=== PATIENT | female | born 1975 | race American Indian/Alaskan Native ===

== ENCOUNTER 2017-11-03 13:33 | Day surgery (SDC) | payer MEDICAID ==
[2017-11-03] MEDS ORDERED: NACL 0.9% 1000 ML 1,000 ML IV SCH (14:00)
--- NOTE | 2017-11-03 16:39 | Anesthesia Day of Surgery ---
Anesthesia Day of Surgery - Day of Surgery Patient Examined: Yes Patient H&P Reviewed: Yes Patient is NPO: Yes
--- NOTE | 2017-11-03 16:39 | Anesthesia Consultation ---
Anesthesia Consult and Med Hx Date of service: 11/03/17 - Airway Anesthetic Teeth Evaluation: Good ROM Head & Neck: Adequate Mental/Hyoid Distance: Adequate Mallampati Class: Class I Intubation Access Assessment: Probably Good - Pulmonary Exam CTA: Yes - Cardiac Exam Cardiac Exam: RRR - Pre-Operative Health Status ASA Pre-Surgery Classification: ASA2 Proposed Anesthetic Plan: General - Pulmonary Hx Smoking: Yes - Cardiovascular System Hx Hypertension: Yes
[2017-11-03] MEDS ORDERED: DIPRIVAN 10 MG/ML IV ONE ×2 (16:43)
--- NOTE | 2017-11-03 17:13 | Operative Report ---
Operative Report Operative Report: Date of procedure: 11/03/2017 Procedure: Colonoscopy. Attending physician: Virgilio Regan MD Business Services Sales Representative: Virgilio Regan MD Indication: Patient is a 42-year-old female who presents for colonoscopy to evaluate abdominal pain and constipation. A colonoscopy serves to evaluate patient so that treatment may be directed based on the findings. Consent: Informed consent was obtained after advising the patient and family regarding nature of this procedure, its indications, potential benefits as well as possible complications including but not limited to bleeding perforation and adverse reaction to medication, infection as well as other cardiopulmonary complications. An informed written and verbal consent was then obtained after due opportunity was provided for questions and answers. Monitoring: Patient was monitored continuously with pulse oximetry and electrocardiographic recordings as well as blood pressure recordings. Vital signs remained stable throughout this procedure with no untoward events. Preoperative assessment: Patient was assessed immediately prior to this procedure for capacity to tolerate monitored anesthesia care and moderate sedation as well as general anesthesia. Patient's ASA classification is 2, Mallampati class is 2, Hyomental distance is 3. Instrument: Scannxn video colonoscope Medications: Propofol given intravenously in divided doses. For details please refer to anesthesia records. Description of procedure: Patient was placed in the left lateral decubitus position after achieving sedation, a digital rectal examination was performed following which the colonoscope was introduced into the anal verge and advanced to the cecum which was identified by the ileocecal valve, the appendiceal orifice, as well as by the cecal strap and direct transillumination. The colonoscope was subsequently withdrawn with careful inspection of all mucosal surfaces. Patient tolerated this procedure well and was subsequently taken to the recovery room. The following findings were noted. Findings: The entirety of the colon to the cecum was normal. On the retroflex view at the anal verge, patient had internal hemorrhoids. Impression: Normal colonoscopy. Hypertrophied anal papilla Internal hemorrhoids. Plan: High-fiber diet. Prn stool softeners. Additional recommendations in follow up.
--- NOTE | 2017-11-03 17:13 | Discharge Summary ---
Short Stay Discharge Plan Activity: advance as tolerated Weight Bearing Status: Weight Bear as Tolerated Diet: regular Additional Instructions: Post Sedation D/C Instructions When you return home you may resume your regular diet unless otherwise directed. - Go directly home from the hospital and rest quietly. You may resume normal activities tomorrow. -Do NOT drive, return to work, operate any machinery or make any important personal or business decisions today. -Do NOT drink any alcohol or take nerve or sleeping drugs. They add to the effects of the medicine still present in your body. Follow up with: ADRY COLON MD [Primary Care Provider] - 7 Days
[2017-11-03] MEDS ORDERED: SUBLIMAZE ONE (17:56)
[2017-11-03 18:26] VITALS: BP 136/97
== END 2017-11-03 13:34 | disposition home or self-care (01) ==
LOC: GIO 13:33
PROVIDERS: ATTEND Internal Medicine Gastroenterology
DX: K64.8 Other hemorrhoids (principal); K62.89 Other specified diseases of anus and rectum; R63.4 Abnormal weight loss; I10 Essential (primary) hypertension; Z98.890 Other specified postprocedural states; Z87.891 Personal history of nicotine dependence
CPT/HCPCS: 45378; 81025; J2704; J3010; J7030

== ENCOUNTER 2017-11-06 10:14 | Day surgery (SDC) | payer MEDICAID ==
[2017-11-06] MEDS ORDERED: NACL 0.9% 1000 ML 1,000 ML IV SCH (11:00)
--- NOTE | 2017-11-06 12:22 | Anesthesia Consultation ---
Anesthesia Consult and Med Hx Date of service: 11/06/17 - Airway Anesthetic Teeth Evaluation: Poor, Chipped, Caps (severely loose right molar, cracked left back teeth ) ROM Head & Neck: Adequate Mental/Hyoid Distance: Adequate Mallampati Class: Class II Intubation Access Assessment: Probably Good - Pulmonary Exam CTA: Yes - Cardiac Exam Cardiac Exam: RRR - Pre-Operative Health Status ASA Pre-Surgery Classification: ASA2 Proposed Anesthetic Plan: MAC - Pulmonary Hx Smoking: Yes - Cardiovascular System Hx Hypertension: Yes
--- NOTE | 2017-11-06 12:23 | Anesthesia Day of Surgery ---
Anesthesia Day of Surgery - Day of Surgery Patient Examined: Yes Patient H&P Reviewed: Yes Patient is NPO: Yes
[2017-11-06] MEDS ORDERED: DIPRIVAN 10 MG/ML IV ONE (12:25)
[2017-11-06] MEDS ORDERED: WATER FOR IRRIG STERILE IR ONE (12:27)
--- NOTE | 2017-11-06 12:30 | History and Physical Report ---
History of Present Illness Date of examination: 11/06/17 Date of admission: 11/06/2017 Chief complaint: Dyspepsia with early satiety indigestion and heartburn and anorexia and weight loss History of present illness: Patient is a 42-year-old female who presents with the following symptoms. She has been losing significant weight. In addition, she had been having indigestion and heartburn with early satiety and anorexia. Also she had had a change in bowel habits and abdominal pain with alternating constipation and loose stools. The past few days, patient had a colonoscopy to assess her which was unremarkable. Patient continues to have persistent upper gastrointestinal symptoms as described above. She now presents for evaluation with an upper endoscopy. Past History Past Medical History: hypertension Medications and Allergies Allergies Allergy/AdvReac Type Severity Reaction Status Date / Time No Known Allergies Allergy Verified 11/03/17 13:49 Home Medications Medication Instructions Recorded Confirmed Last Taken Type Amlodipine Besylate 5 mg PO DAILY 11/03/17 11/06/17 11/03/17 History Active Meds: Active Medications Sodium Chloride (Nacl 0.9% 1000 Ml) 1,000 mls @ 50 mls/hr IV DIRECT PIPE Last Admin: 11/06/17 11:30 Dose: 50 mls/hr Review of Systems Constitutional: weight loss Ears, nose, mouth and throat: no ear pain, no ear discharge, no tinnitis, no decreased hearing, no nasal congestion, no nasal discharge, no sinus pressure, no sinus pain, no bleeding gums, no dental pain, no mouth pain, no dysphagia, no hoarseness, no sore throat, no swelling in mouth, no swelling in throat, no odynophagia Breasts: normal Cardiovascular: high blood pressure, no chest pain, no orthopnea, no palpitations, no rapid/irregular heart beat, no edema, no syncope, no lightheadedness, no shortness of breath, no dyspnea on exertion, no paroxysmal nocturnal dyspnea, no claudication, no phlebitis, no leg edema, no decreased exercise tolerance Respiratory: no cough, no cough with sputum, no excessive sputum, no hemoptysis , no shortness of breath, no dyspnea on exertion, no congestion, no wheezing, no pleurisy, no pain, no pain on inspiration, no snoring, no sleep apnea, no respiratory infections, no home oxygen, no other Gastrointestinal: abdominal pain, nausea, vomiting, diarrhea, constipation, change in bowel habits, loss of appetite, early satiety, heartburn, indigestion , excessive gas, dyspepsia/bloating, early satiety, no hematemesis, no coffee ground emesis, no BRBPR, no melena, no hematochezia, no belching, no jaundice, no lactose intolerance Genitourinary Female: no dyspareunia, no dysmenorrhea, no pelvic pain, no flank pain, no menorrhagia, no dysuria, no stress incontinence, no post void dribbling , no incomplete emptying, no urge incontinence, no mixed incontinence, no difficulty voiding, no hematuria, no nocturia, no vaginal itching, no vaginal discharge, no vaginal odor, no abnormal vaginal bleeding, no genital sores, no decreased libido, no mood problems, no hot flashes, no prolapse symptoms, no , no difficulties conceiving, no kidney stones Rectal: no pain, no incontinence, no bleeding, no itching, no hemorrhoids, no discharge Musculoskeletal: no neck stiffness, no neck pain, no shooting arm pain, no arm numbness/tingling, no low back pain, no shooting leg pain, no leg numbness/ tingling, no redness of joints, no hot joints, no morning stiffness, no muscle weakness, no muscle cramps, no myalgias, no atrophy, no limitation of motion, no frequent falls, no fractures, no loss of height, no prior amputations, no arthritis, no other Integumentary: no rash, no pruritis, no redness, no sores, no wounds, no jaundice, no boils, no blisters, no growths, no bullae, no lesions, no darkening of skin, no depigmentation, no acne, no dryness, no color changes, no unusual bruising, no change in hair/nails, no brittle nails, no striae, no hirsutism, no foot/leg ulcers, no onychomycosis, no other Neurological: no head injury, no transient paralysis, no paralysis, no weakness , no parathesias, no numbness, no tingling, no vertigo, no headaches, no migraines, no convulsions, no aphasia, no change in speech, no gait dysfunction , no motor disturbance, no sensory deficit, no double vision, no loss of vision , no hearing difficulties, no burning pain Psychiatric: no anxiety, no memory loss, no change in sleep habits, no sleep disturbances, no insomnia, no hypersomnia, no change in appetite, no change in libido, no suicidal ideation, no disorientation, no hallucinations, no paranoia , no depression, no hopelessness, no anhedonia, no anxiety attacks, no difficulties concentrating, no confusion, no irritability, no sadness/ tearfullness, no mood swings Endocrine: no cold intolerance, no heat intolerance, no polyphagia, no excessive thirst, no polydipsia, no polyuria, no nocturia, no excessive sweating , no flushing, no increase in ring/shoe/hat size, no proptosis, no deepening of the voice, no thyroid mass, no palpatations, no high blood sugars, no low blood sugars, no recent glucocorticoid use, no fatigue Hematologic/Lymphatic: no easy bruising, no easy bleeding, no lymphadenopathy, no lymphedema Allergic/Immunologic: no urticaria, no allergic rhinitis, no wheezing, no persistent infections, no anaphylaxis, no angioedema, no gluten intolerance, no seasonal allergies, no other Exam - Constitutional Vitals: Temp Pulse Resp BP Pulse Ox 98.1 F 82 19 149/100 100 11/06/17 11:14 11/06/17 11:14 11/06/17 11:14 11/06/17 11:14 11/06/17 11:14 General appearance: Present: no acute distress, well-nourished - EENT Eyes: Present: PERRL, EOM intact. Absent: scleral icterus, conjunctival injection ENT: hearing intact, clear oral mucosa, dentition normal, no oropharyngeal erythema, no poor dentition, no thrush, no ulcerations - Neck Neck: Present: supple, normal ROM. Absent: enlarged thyroid, masses or JVD, carotid bruits - Respiratory Respiratory effort: normal Respiratory: bilateral: CTA - Cardiovascular Rhythm: regular Heart Sounds: Present: S1 & S2. Absent: gallop (Imon and yes yes yes.) - Extremities Extremities: No edema - Abdominal General gastrointestinal: Present: soft, non-tender, non-distended. Absent: hepatomegaly, splenomegaly, mass, hernia - Rectal Rectal Exam: normal exam-external/orifice - Integumentary Integumentary: Present: clear - Musculoskeletal Musculoskeletal: strength equal bilaterally - Psychiatric Psychiatric: appropriate mood/affect - Neurologic Neurologic: CNII-XII intact Assessment and Plan Epigastric pain indigestion and heartburn and dyspepsia with early satiety or weight loss Plan: An upper endoscopy will be done to evaluate patient. Additional recommendations will be made depending on the findings.
--- NOTE | 2017-11-06 13:03 | Operative Report ---
Operative Report Operative Report: Date of procedure: 11/06/2017 Procedure: Esophagogastroduodenoscopy with multiple mucosal biopsies Attending physician: Virgilio Regan MD Land Economist: Virgilio Regan MD Indication: Patient is a 42-year-old female who presented with history of severe dyspepsia with early satiety and anorexia heartburn and indigestion. Patient also has had significant weight loss. An upper endoscopy is done to evaluate patient so that treatment may be directed based on the findings. Consent: Informed consent was obtained after advising the patient and family regarding nature of this procedure, its indications, potential benefits as well as possible complications including but not limited to bleeding perforation and adverse reaction to medication, infection as well as other cardiopulmonary complications. An informed written and verbal consent was then obtained after due opportunity was provided for questions and answers. Monitoring: Patient was monitored continuously with pulse oximetry and electrocardiographic recordings as well as blood pressure recordings. Vital signs remained stable throughout this procedure with no untoward events. Preoperative assessment: Patient was assessed immediately prior to this procedure for capacity to tolerate monitored anesthesia care and moderate sedation as well as general anesthesia. Patient's ASA classification is 2, Mallampati class is 2, Hyomental distance is 3. Instrument: Snocap video endoscope Medications: Propofol given intravenously in divided doses for details please for to anesthesia records. Description of procedure: Patient was placed in the left lateral decubitus position after achieving sedation, the endoscope was introduced into the esophagus under direct vision. It was then advanced beyond the esophagus into the stomach and then beyond the stomach into the duodenum and to the second portion of the duodenum. It was subsequently withdrawn with careful inspection of all mucosal surfaces with the following findings. Findings: The esophagus was normal. There was mild erythema in the gastric antrum. There was a 1 cm x 0.6 cm ulcer in the gastric antrum. There was surrounding mucosal edema. Biopsies were obtained around this area for histopathology. The ulcer was clean based. The antrum was partially deformed. The duodenum was normal to second portion. Impression: Gastric antral ulcer. Mucosal changes suggestive of gastritis. Plan: Follow pathology report. Treatment with high-dose proton pump inhibitors for 8-12 weeks and repeat endoscopy to check for healing of the ulcer. Observe patient clinically for continued improvement on treatment with her symptoms. Additional steps will be taken in follow-up depending on patient's clinical course
--- NOTE | 2017-11-06 13:04 | Discharge Summary ---
Short Stay Discharge Plan Activity: advance as tolerated Weight Bearing Status: Weight Bear as Tolerated Diet: regular Follow up with: ADRY COLON MD [Primary Care Provider] - 7 Days
[2017-11-06 13:25] VITALS: BP 137/95
== END 2017-11-06 10:15 | disposition home or self-care (01) ==
LOC: GIO 10:14
PROVIDERS: ATTEND Internal Medicine Gastroenterology
DX: K25.9 Gastric ulcer, unspecified as acute or chronic, without hemorrhage or perforation (principal); I10 Essential (primary) hypertension; Z98.890 Other specified postprocedural states; Z87.891 Personal history of nicotine dependence; R63.4 Abnormal weight loss
CPT/HCPCS: 43239; 81025; 88305; 88342; J2704; J7030

== ENCOUNTER 2018-02-23 13:50 | Day surgery (SDC) | payer MEDICAID ==
--- NOTE | 2018-02-23 14:52 | Anesthesia Consultation ---
Anesthesia Consult and Med Hx Date of service: 02/23/18 - Airway Anesthetic Teeth Evaluation: Poor (multiple broken, missing teeth), Chipped ROM Head & Neck: Adequate Mental/Hyoid Distance: Adequate Mallampati Class: Class II Intubation Access Assessment: Probably Good - Pre-Operative Health Status ASA Pre-Surgery Classification: ASA2 Proposed Anesthetic Plan: MAC - Pulmonary Hx Smoking: Yes - Cardiovascular System Hx Hypertension: Yes (no meds) - Central Nervous System Hx Psychiatric Problems: Yes (anxiety/depression) - Gastrointestinal Hx Gastroesophageal Reflux Disease: Yes (epigastric pain)
--- NOTE | 2018-02-23 14:53 | Anesthesia Day of Surgery ---
Anesthesia Day of Surgery - Day of Surgery Patient Examined: Yes Patient H&P Reviewed: Yes Patient is NPO: Yes
[2018-02-23] MEDS ORDERED: NACL 0.9% 1000 ML 1,000 ML IV SCH (15:00)
[2018-02-23] MEDS ORDERED: DIPRIVAN 10 MG/ML IV ONE ×2 (16:43)
[2018-02-23 17:36] VITALS: BP 128/79
--- NOTE | 2018-02-23 19:28 | Operative Report ---
Operative Report Operative Report: 02/23/2018 Procedure: Esophagogastroduodenoscopy with multiple mucosal biopsies. Attending physician: Virgilio Regan MD New Business Clerk: Virgilio Regan MD Indication: Patient is a 42 -year-old female who presented with a history of recurrent epigastric pain, dyspepsia with early satiety and continuing weight loss. Patient has a past history of peptic ulcer disease and Helicobacter pylori infection. Patient has completed prescribed treatment. Despite this, patient continues to experience weight loss. She also continues to complain of persistent epigastric pain. This endoscopy is done to assess patient to make sure that her peptic ulcer has healed completely, and also to evaluate for any other underlying abnormality that may explain patient's symptoms. Patient also had been using nonsteroidals frequently. This upper endoscopy is done to assess patient, so that treatment may be directed based on the findings. Consent: Informed consent was obtained after advising the patient and family regarding nature of this procedure, its indications, potential benefits as well as possible complications including but not limited to bleeding perforation and adverse reaction to medication, infection as well as other cardiopulmonary complications. An informed written and verbal consent was then obtained after due opportunity was provided for questions and answers. Monitoring: Patient was monitored continuously with pulse oximetry and electrocardiographic recordings as well as blood pressure recordings. Vital signs remained stable throughout this procedure with no untoward events. Preoperative assessment: Patient was assessed immediately prior to this procedure for capacity to tolerate monitored anesthesia care and moderate sedation as well as general anesthesia. Patient's ASA classification is 3, Mallampati class is 2, Hyomental distance is 3. Instrument: Fujinon video endoscope Medications: Propofol given intravenously in divided doses. For details please refer to anesthesia records. Description of procedure: Patient was placed in the left lateral decubitus position after achieving sedation, the endoscope was introduced into the esophagus under direct vision. It was then advanced beyond the esophagus into the stomach and then beyond the stomach into the duodenum and to the second portion of the duodenum. It was subsequently withdrawn with careful inspection of all mucosal surfaces with the following findings. Findings: Patient's Z line was at 37 cm. There was a small diminutive sliding hiatal hernia seen on entry into the stomach. There was erythema and erosions seen in the gastric antrum and also in the gastric cardia. Several biopsies were obtained from the antrum and also from the gastric cardia. Previously noted ulcer in the stomach, has now healed. The duodenum was normal to second portion. Impression: Irregular Z line. Gastric antral erythema Gastric antral erosions Gastric cardia erosions. Hiatal hernia. Plan: Continue treatment with proton pump inhibitors. Follow pathology report. Direct additional treatment based on the pathology report. Patient will be observed clinically. Additional recommendations will be made follow-up.
--- NOTE | 2018-02-23 19:29 | Discharge Summary ---
Short Stay Discharge Plan Activity: advance as tolerated Weight Bearing Status: Weight Bear as Tolerated Diet: regular Additional Instructions: Post Sedation D/C Instructions When you return home you may resume your regular diet unless otherwise directed. -Go directly home from the hospital and rest quietly. You may resume normal activities tomorrow . -Do NOT drive, return to work, operate any machinery or make any important personal or business decisions today. -Do NOT drink any alcohol or take nerve or sleeping drugs. They add to the effects of the medicine still present in your body. CALL FOR F/U APPT. Follow up with: ADRY COLON MD [Staff Physician] - 7 Days
== END 2018-02-23 17:50 | disposition home or self-care (01) ==
LOC: GIO 13:50
PROVIDERS: ATTEND Internal Medicine Gastroenterology
DX: K29.50 Unspecified chronic gastritis without bleeding (principal); K44.9 Diaphragmatic hernia without obstruction or gangrene; K21.9 Gastro-esophageal reflux disease without esophagitis; K31.89 Other diseases of stomach and duodenum; I10 Essential (primary) hypertension; F32.9 Major depressive disorder, single episode, unspecified; F41.9 Anxiety disorder, unspecified; F17.200 Nicotine dependence, unspecified, uncomplicated; Z79.899 Other long term (current) drug therapy; Z83.3 Family history of diabetes mellitus; Z82.49 Family history of ischemic heart disease and other diseases of the circulatory system; Z82.61 Family history of arthritis; Z84.89 Family history of other specified conditions
CPT/HCPCS: 43239; 88305; 88342; J2704; J7030